=== PATIENT | male | born 1960 | race Caucasian/White ===

== ENCOUNTER 2019-09-01 14:29 | Emergency (ER) | payer OTHER ==
[2019-09-01] MEDS ORDERED: Aspirin 81 MG Tab.Chew PO ONE (14:51)
[2019-09-01] MEDS ORDERED: Sodium Chloride 0.9% 10 ML Syringe FLUSH PRN (14:51)
--- NOTE | 2019-09-01 15:25 | CR ---
Chest: Portable view of the chest was obtained. Comparison: No prior chest x-ray. Heart size and mediastinum are within normal limits for portable technique. Lungs are clear. Bony structures are grossly intact. Impression: 1. Nothing acute is appreciated on portable chest x-ray. Diagnostic code #1 This report was dictated in [place] Standard Time
[2019-09-01] MEDS ORDERED: Heparin Sodium 5,000 Units/ML Vial IVPUSH ONE (16:04)
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
[2019-09-01] MEDS ORDERED: Heparin Sodium/D5W 25,000 UNITS/500 ML BAG IV SCH (16:15)
== END 2019-09-01 17:48 ==
LOC: JD.ED 14:29
DX: I21.4 Non-ST elevation (NSTEMI) myocardial infarction (principal)
CPT/HCPCS: 36415; 71045; 80053; 84484; 85025; 93005; A9270; J1644; 93010; 96365; 96366; 99285; 99285-25

== ENCOUNTER 2020-07-15 17:09 | Emergency (ER) | payer OTHER ==
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
[2020-07-15] MEDS ORDERED: FLU VACC QS2020-21(6MOS UP)/PF 60 MCG/0.5 ML SYRINGE IM ONE (18:15)
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
== END 2020-07-15 19:30 | disposition home or self-care (01) ==
LOC: JD.ED 17:09
DX: S87.02XA Crushing injury of left knee, initial encounter (principal); Z91.040 Latex allergy status; Z79.82 Long term (current) use of aspirin; Z79.02 Long term (current) use of antithrombotics/antiplatelets; Z79.899 Other long term (current) drug therapy; Z23 Encounter for immunization; W23.0XXA Caught, crushed, jammed, or pinched between moving objects, initial encounter
CPT/HCPCS: 36415; 73552-26-LT; 73552-LT; 73562-26-LT; 73562-LT; 80053; 85025; 90686; 99283; G0008

== ENCOUNTER 2020-07-18 13:31 | Emergency (ER) | payer OTHER ==
--- NOTE | 2020-07-18 14:32 | EDM.PDOC ---
ED HPI GENERAL MEDICAL PROBLEM - General Chief Complaint: Chest Pain Stated Complaint: [facility] Time Seen by Provider: 07/18/20 13:53 Source of Information: Reports: Patient History Limitations: Reports: No Limitations - History of Present Illness INITIAL COMMENTS - FREE TEXT/NARRATIVE: Mr. Clark is a very pleasant 59-year-old gentleman with a past medical history significant for coronary artery disease, status post 3 MIs, the first in November 2016, the second on 07/09/2018, and the third 09/01/2019. He underwent a coronary angiogram each time, receiving a single coronary stent following his first and second MIs each, but not his third. The patient tells me that his Weed Science Research Technician believes that his third episode was due to coronary spasm related to the patient having discontinued his clopidogrel about 2 weeks prior. The patient now presents with similar symptoms. He states that he developed dyspnea, nausea, and diaphoresis around 11:00 this morning, while walking across his yard to a shed. He sat down for awhile, then decided to return to the house. He developed sudden onset crushing retrosternal chest pain while walking back to the house. He states that he was unable to lie down, because he thought that would cause him to vomit. He states that he took 2 sublingual nitroglycerin, with only slight improvement of his symptoms. He waited for a period of time before he had his nephews drive him to the [facility]. The [facility] ambulance service gave the patient a single spray of nitroglycerin, which did not improve his symptoms. He was then given 324 mg of aspirin and 5 mg of IV morphine, which resolved the patient's symptoms. They have not recurred. The patient states that today's symptoms are virtually identical to when he had his first TN in November 2016. He states that his symptoms in June 2018 and August 2019 were similar, but not as severe. The patient states that he injured his left knee this past 07/16/2020. He discontinued his clopidogrel at that time. He states that he was originally prescribed clopidogrel in 2016, following his initial TN. His most recent stent was for his second TN in June 2018. Here in the ED, the patient's is found to be hemodynamically stable, afebrile, saturating 97% on room air. Prior to this morning, the patient denies having a recent fever, chills, sore throat, ear pain, nasal or sinus congestion, cough, dyspnea, chest pain, palpitations, nausea, vomiting, constipation, diarrhea, abdominal pain, urinary symptoms, recent weight gain or weight loss, recent bloody bowel movements or black bowel movements, recent joint aches, headaches, or rashes. The patient's PCP is Dr. Anabelle Pelletier, at the [facility]. He does not recall the name of his Weed Science Research Technician at [facility]. - Related Data Allergies Allergy/AdvReac Type Severity Reaction Status Date / Time latex Allergy Itching Verified 07/18/20 13:40 Home Meds: Home Meds Aspirin 81 mg PO DAILY 09/01/19 [History] atorvaSTATin [Lipitor] 10 mg PO BEDTIME 09/01/19 [History] Clopidogrel Bisulfate [Plavix] 75 mg PO DAILY 07/15/20 [History] Hydrocodone/Acetaminophen [Hydrocodone-Acetamin 5-325 mg] 1 - 2 each PO Q6H PRN #30 tablet 07/15/20 [Rx] Past Medical History HEENT History: Reports: Glaucoma Cardiovascular History: Reports: CAD, High Cholesterol, Hypertension, TN (x 3; Nov 2016, 07/09/2018, 09/01/2019), Other (See Below) (Left renal artery stenosis; left kidney subsequently donated) Genitourinary History: Reports: Renal Calculus (x 1) - Past Surgical History HEENT Surgical History: Reports: Cataract Surgery (bilateral), Eye Surgery (Bilateral shunts. Right cornea transplant.), Tonsillectomy Cardiovascular Surgical History: Reports: Coronary Artery Stent (x 2; Nov 2016, 07/09/2018), Other (See Below) (Coronary angiogram x 3; Nov 2016, 07/09/2019, 09/01/2019) GI Surgical History: Reports: Other (See Below) (Exploratory laparotomy with hemicolectomy) Male Surgical History: Reports: Nephrectomy (donated left), Other (See Below) (Ureterolith extraction) Musculoskeletal Surgical History: Reports: ORIF (left tibia) Social & Family History - Family History Family Medical History: Noncontributory - Tobacco Use Tobacco Use Status *Q: Former Tobacco User Years of Tobacco use: 27 Packs/Tins Daily: 2 Month/Year Tobacco Last Used: Quit 2006 - Caffeine Use Caffeine Use: Reports: Coffee - Alcohol Use Alcohol Use History: No - Recreational Drug Use Recreational Drug Use: No - Living Situation & Occupation Living situation: Reports: Single, Alone Occupation: Unemployed ED ROS GENERAL - Review of Systems Review Of Systems: Comprehensive ROS is negative, except as noted in HPI. ED EXAM, GENERAL - Physical Exam Exam: See Below Exam Limited By: No Limitations General Appearance: Alert, WD/WN, No Apparent Distress (patient denies having any symptoms) Eye Exam: Bilateral Eye: EOMI, Normal Inspection Ears: Normal External Exam, Hearing Grossly Normal Nose: Normal Inspection Throat/Mouth: Normal Inspection, Normal Lips, Normal Voice, No Airway Compromise Head: Atraumatic, Normocephalic Neck: Normal Inspection, Full Range of Motion Respiratory/Chest: No Respiratory Distress, Lungs Clear, Normal Breath Sounds, No Accessory Muscle Use. No: Decreased Breath Sounds, Crackles, Rhonchi, Wheezing, Stridor, Prolonged Expiration Cardiovascular: Normal Peripheral Pulses, Regular Rate, Rhythm, No Edema, No Gallop, No JVD, No Murmur, No Rub Peripheral Pulses: 3+: Radial (L), Radial (R) GI/Abdominal: Normal Bowel Sounds, Soft, Non-Tender, No Organomegaly, No Distention, No Abnormal Bruit, No Mass, Other (Well-healed exploratory laparotomy scar) Back Exam: Normal Inspection, Full Range of Motion, NT Extremities: Normal Inspection, Normal Range of Motion, No Pedal Edema, Normal Capillary Refill Neurological: Alert, Oriented, Normal Cognition, No Motor/Sensory Deficits Psychiatric: Normal Affect Skin Exam: Warm, Dry, Intact, Normal Color, No Rash #1 Interpretation EKG Date: 07/18/20 Time: 13:40 Rhythm: NSR Rate (Beats/Min): 72 Jackson: Normal P-Wave: Present QRS: Normal ST-T: Other (Inferolateral T wave inversions, but no ischemic changes) QT: Normal Comparison: No Change (09/01/2019) #2 Interpretation EKG Date: 07/18/20 Time: 18:15 Rhythm: NSR Rate (Beats/Min): 84 Jackson: Normal P-Wave: Present QRS: Normal ST-T: Normal QT: Normal Comparison: Change From Previous EKG (Previously seen anterolateral T wave inversions resolved) Course - Vital Signs Last Recorded V/S: Last Vital Signs Temp 36.6 C 07/18/20 13:37 Pulse 70 07/18/20 13:37 Resp 16 07/18/20 13:37 BP 153/84 H 07/18/20 18:13 Pulse Ox 97 07/18/20 13:37 - Orders/Labs/Meds Orders: Active Orders 24 hr Category Date Time Status EKG Documentation Completion [RC] STAT Care 07/18/20 14:19 Active EKG Documentation Completion [RC] STAT Care 07/18/20 18:12 Active Chest 2V [CR] Stat Exams 07/18/20 14:19 Taken Heparin Sodium/D5W [Heparin 25,000 Units in D5W 500 ML] Med 07/18/20 16:00 Active 25,000 units in 500 ml IV TITRATE Nitroglycerin/D5W [Nitroglycerin 25 MG/D5W 250 ML] Med 07/18/20 18:30 Active 25 mg in 250 ml IV TITRATE Medication Orders Heparin Sodium/Dextrose (Heparin 25,000 Units In D5w 500 Ml) 25,000 units in 500 mls @ 19.6 mls/hr IV TITRATE YARITZA; Protocol Last Admin: 07/18/20 16:09 Dose: 980 units/hr, 19.6 mls/hr Documented by: [id number] Cosigned by: KERRY Nitroglycerin/Dextrose (Nitroglycerin 25 Mg/D5w 250 Ml) 25 mg in 250 mls @ 3 mls/hr IV TITRATE YARITZA; Protocol Last Titration: 07/18/20 20:40 Dose: 15 mcg/min, 9 mls/hr Documented by: [email or web address] Titration: 07/18/20 20:25 Dose: 10 mcg/min, 6 mls/hr Documented by: [email or web address] Titration: 07/18/20 20:00 Dose: 7 mcg/min, 4.2 mls/hr Documented by: [email or web address] Admin: 07/18/20 18:30 Dose: 5 mcg/min, 3 mls/hr Documented by: [email or web address] Labs: Laboratory Tests 07/18/20 07/18/20 07/18/20 Range/Units 14:42 14:42 14:42 WBC 8.49 (4.23-9.07) K/mm3 RBC 5.08 (4.63-6.08) M/mm3 Hgb 14.2 (13.7-17.5) gm/dl Hct 44.0 (40.1-51.0) % MCV 86.6 (79.0-92.2) fl MCH 28.0 (25.7-32.2) pg MCHC 32.3 (32.2-35.5) g/dl RDW Std Deviation 43.3 (35.1-43.9) fL Plt Count 278 (163-337) K/mm3 MPV 9.3 L (9.4-12.3) fl Neutrophils % (Manual) 85 H (40-60) % Band Neutrophils % 0 (0-10) % Lymphocytes % (Manual) 9 L (20-40) % Atypical Lymphs % 0 % Monocytes % (Manual) 6 (2-10) % Eosinophils % (Manual) 0 L (0.8-7.0) % Basophils % (Manual) 0 L (0.2-1.2) Platelet Estimate Adequate RBC Morph Comment Normal APTT (21.7-31.4) SECONDS D-Dimer, Quantitative 0.65 H (0.19-0.50) mg/L Sodium 138 (136-145) mEq/L Potassium 4.0 (3.5-5.1) mEq/L Chloride 103 (98-107) mEq/L Carbon Dioxide 26 (21-32) mEq/L Anion Gap 13.0 (5-15) BUN 10 (7-18) mg/dL Creatinine 1.3 (0.7-1.3) mg/dL Est Cr Clr Drug Dosing 61.61 mL/min Estimated GFR (MDRD) 56 (>60) mL/min BUN/Creatinine Ratio 7.7 L (14-18) Glucose 93 (80-115) mg/dL Calcium 9.1 (8.5-10.1) mg/dL Magnesium 2.0 (1.8-2.4) mg/dl Total Bilirubin 0.6 (0.2-1.0) mg/dL AST 24 (15-37) U/L ALT 22 (16-63) U/L Alkaline Phosphatase 79 (46-116) U/L Troponin I 0.209 H* (0.00-0.056) ng/mL NT-Pro-B Natriuret Pep (0-125) pg/mL Total Protein 7.3 (6.4-8.2) g/dl Albumin 3.8 (3.4-5.0) g/dl Globulin 3.5 gm/dL Albumin/Globulin Ratio 1.1 (1-2) SARS-CoV-2 RNA (RADHA) (NEGATIVE) 07/18/20 07/18/20 07/18/20 Range/Units 14:42 14:42 16:05 WBC (4.23-9.07) K/mm3 RBC (4.63-6.08) M/mm3 Hgb (13.7-17.5) gm/dl Hct (40.1-51.0) % MCV (79.0-92.2) fl MCH (25.7-32.2) pg MCHC (32.2-35.5) g/dl RDW Std Deviation (35.1-43.9) fL Plt Count (163-337) K/mm3 MPV (9.4-12.3) fl Neutrophils % (Manual) (40-60) % Band Neutrophils % (0-10) % Lymphocytes % (Manual) (20-40) % Atypical Lymphs % % Monocytes % (Manual) (2-10) % Eosinophils % (Manual) (0.8-7.0) % Basophils % (Manual) (0.2-1.2) Platelet Estimate RBC Morph Comment APTT 26.2 (21.7-31.4) SECONDS D-Dimer, Quantitative (0.19-0.50) mg/L Sodium (136-145) mEq/L Potassium (3.5-5.1) mEq/L Chloride (98-107) mEq/L Carbon Dioxide (21-32) mEq/L Anion Gap (5-15) BUN (7-18) mg/dL Creatinine (0.7-1.3) mg/dL Est Cr Clr Drug Dosing mL/min Estimated GFR (MDRD) (>60) mL/min BUN/Creatinine Ratio (14-18) Glucose (80-115) mg/dL Calcium (8.5-10.1) mg/dL Magnesium (1.8-2.4) mg/dl Total Bilirubin (0.2-1.0) mg/dL AST (15-37) U/L ALT (16-63) U/L Alkaline Phosphatase (46-116) U/L Troponin I (0.00-0.056) ng/mL NT-Pro-B Natriuret Pep 152 H (0-125) pg/mL Total Protein (6.4-8.2) g/dl Albumin (3.4-5.0) g/dl Globulin gm/dL Albumin/Globulin Ratio (1-2) SARS-CoV-2 RNA (RADHA) Negative (NEGATIVE) Meds: Medications Generic Name Dose Route Start Last Admin Trade Name Freq PRN Reason Stop Dose Admin Heparin Sodium/Dextrose 25,000 units in 500 mls @ 19.6 mls/hr 07/18/20 16:00 07/18/20 16:09 Heparin 25,000 Units In D5w 500 Ml IV 980 units/hr TITRATE YARITZA 19.6 mls/hr Administration Protocol 980 UNITS/HR Nitroglycerin/Dextrose 25 mg in 250 mls @ 3 mls/hr 07/18/20 18:30 07/18/20 20:40 Nitroglycerin 25 Mg/D5w 250 Ml IV 15 mcg/min TITRATE YARITZA 9 mls/hr Titration Protocol 5 MCG/MIN Discontinued Medications Generic Name Dose Route Start Last Admin Trade Name Nixon PRN Reason Stop Dose Admin Heparin Sodium (Porcine) 4,000 units 07/18/20 15:53 07/18/20 16:09 Heparin Sodium IVPUSH 07/18/20 15:54 4,000 units .BOLUS STA Administration Hydromorphone HCl 1 mg 07/18/20 20:23 07/18/20 20:54 Dilaudid IVPUSH 07/18/20 20:24 1 mg ONETIME ONE Administration Nitroglycerin 0.4 mg 07/18/20 18:12 07/18/20 18:13 Nitrostat SL 07/18/20 18:13 0.4 mg ONETIME ONE Administration Nitroglycerin Confirm 07/18/20 18:12 07/18/20 18:23 Nitrostat Administered 07/18/20 18:13 Not Given Dose 0.4 mg .ROUTE .STK-MED ONE - Re-Assessments/Exams Free Text/Narrative Re-Assessment/Exam: 07/18/20 14:20 As above, the patient developed sudden diaphoresis, nausea, and dyspnea while walking across his yard around 11:00 this morning, followed by sudden onset onset crushing chest pain. He took 2 sublingual nitroglycerin with only slight improvement of his symptoms. He was driven to the paramedics, who then gave him a nitroglycerin spray, with no improvement of his symptoms, followed by aspirin abd morphine, with subsequent complete resolution of his symptoms. He remains asymptomatic. His ECG, obtained at triage, shows T wave inversions in the inferolateral leads, but no acute ischemic changes. His physical exam is grossly unremarkable. He states that his symptoms today were virtually identical to his first TN in November 2016, and not to do similar from subsequent MIs in June 2018 in August 2019. I have no doubt that his symptoms today are cardiac in etiology, as well. I have ordered a work-up that includes blood work and a chest x-ray. Because he will likely require transfer to a cardiac center, he will also be swabbed for the SARS-CoV-2 virus 07/18/20 15:01 2-view chest radiograph is read by Kobi as "No acute findings." 07/18/20 15:44 The patient's CBC is unremarkable. His CMP is unremarkable. His magnesium level is within normal limits at 2.0. His BNP is mildly elevatred at 152. His troponin is elevated at 0.209. His D-dimer is mildly elevated at 0.65. Results of his swab for the SARS-CoV-2 virus are still pending. 07/18/20 16:02 Case discussed with Jordana at [facility] at 15:40. Case then discussed with Dr. Ramos, Weed Science Research Technician at [facility], at 15:48. He agreed that the patient should be admitted to the Hospitalist. He would like us to start a heparin drip. The patient has already been swabbed for the SARS-CoV-2 virus, with the results still pending. I will call the Hospitalist back once I have the result. 07/18/20 16:13 I pushed the chest x-ray images to [facility]. 07/18/20 17:30 The patient's swab for the SARS-CoV-2 virus returned negative. 07/18/20 18:12 Notified that the patient redeveloped crushing retrosternal chest pain, the same kind of pain as he had earlier. I have ordered a repeat ECG + a SL NTG. 07/18/20 18:22 Notified that the patient's chest pain solved after a single sublingual nitroglycerin. An ECG obtained, unfortunately, after the nitroglycerin was given shows a normal sinus rhythm at 84 bpm with no ischemic changes, indeed, the previously seen T wave inversions in the inferolateral leads are now upr ight. Based on the above, I have ordered a nitroglycerin drip to be started at 5 mcg/min. 07/18/20 20:23 The patient has continued to have chest pain. His nitroglycerin drip was increased to 10 mcg/min, and I have just ordered it to be increased to 15 mcg/min. I will also order some IV Dilaudid. Additionally, the patient has become quite upset that he has not yet been transported. He states that his brother could have come up and driven him to [place] by now, which may be true, but I explained to the patient that because he has had an TN, he needs to be on a radiation monitor in case he goes into a fatal dysrhythmia, and, in addition, he is receiving nitroglycerin and heparin drips, which cannot be done in his brother's car. I explained that our ED, and other EDs and hospitals across the [facility] are very busy, and that transportation is desired by everyone, creating a delay in transfer for not only him, but for every other patient that we are trying to transfer, as well. Called back by Miky at [facility] at 20:13. Case then discussed with Dr. Zarco, Hospitalist senior instrumentation engineer at 20:15. She accepted the patient for admission to their hospital. The patient will be transported by helicopter. Departure - Departure Time of Disposition: 20:30 Disposition: DC/Tfer to Acute Hospital 02 Reason for Transfer *Q: Primary PCI Indicated Condition: Good Clinical Impression: Non-STEMI (non-ST elevated myocardial infarction) Referrals: Anabelle Pelletier MD [Primary Care Provider] - Forms: ED Department Discharge Sepsis Event Note (ED) - Evaluation Sepsis Screening Result: No Definite Risk - Focused Exam Vital Signs: Vital Signs Temp Pulse Resp BP BP Pulse Ox 07/18/20 18:13 153/84 H 07/18/20 13:37 36.6 C 70 16 126/60 97 - My Orders Last 24 Hours: My Active Orders 07/18/20 14:19 EKG Documentation Completion [RC] STAT Chest 2V [CR] Stat 07/18/20 16:00 Heparin Sodium/D5W [Heparin 25,000 Units in D5W 500 ML] 25,000 units in 500 ml IV TITRATE 07/18/20 18:12 EKG Documentation Completion [RC] STAT 07/18/20 18:30 Nitroglycerin/D5W [Nitroglycerin 25 MG/D5W 250 ML] 25 mg in 250 ml IV TITRATE - Assessment/Plan Last 24 Hours: My Active Orders 07/18/20 14:19 EKG Documentation Completion [RC] STAT Chest 2V [CR] Stat 07/18/20 16:00 Heparin Sodium/D5W [Heparin 25,000 Units in D5W 500 ML] 25,000 units in 500 ml I V TITRATE 07/18/20 18:12 EKG Documentation Completion [RC] STAT 07/18/20 18:30 Nitroglycerin/D5W [Nitroglycerin 25 MG/D5W 250 ML] 25 mg in 250 ml IV TITRATE
[2020-07-18] MEDS ORDERED: Heparin Sodium 5,000 Units/ML Vial IVPUSH STA (15:53)
[2020-07-18] MEDS ORDERED: Heparin Sodium/D5W 25,000 UNITS/500 ML BAG IV SCH (16:00)
[2020-07-18] MEDS ORDERED: Nitroglycerin 0.4 MG Tab.SL ONE (18:12)
[2020-07-18] MEDS ORDERED: Nitroglycerin 0.4 MG Tab.SL SL ONE (18:12)
[2020-07-18] MEDS ORDERED: Nitroglycerin/D5W 25 MG/250 ML BOTTLE IV SCH (18:30)
[2020-07-18] MEDS ORDERED: HYDROmorphone 1 MG/ML Syringe IVPUSH ONE (20:23)
--- NOTE | 2020-07-19 09:44 | CR ---
PROCEDURE INFORMATION: Exam: XR Chest, 2 Views Exam date and time: 07/18/2020 2:32 PM Age: 59 years old Clinical indication: Chest pain; Patient HX: HX of heart attack TECHNIQUE: Imaging protocol: XR of the chest Views: 2 views. COMPARISON: CR Chest 1V Frontal 09/01/2019 2:45 PM FINDINGS: Lungs: Unremarkable. No consolidation. Pleural space: Unremarkable. No pleural effusion. No pneumothorax. Heart/Mediastinum: Unremarkable. No cardiomegaly. Bones/joints: Unremarkable. IMPRESSION: No acute findings. Thank you for allowing us to participate in the care of your patient. Dictated and Authenticated by: Gigi Mata MD 07/18/2020 3:52 PM Central Time ([place] & [place]) KATIA
== END 2020-07-18 21:50 ==
LOC: JD.ED 13:31
DX: I21.4 Non-ST elevation (NSTEMI) myocardial infarction (principal); I25.10 Atherosclerotic heart disease of native coronary artery without angina pectoris; E78.00 Pure hypercholesterolemia, unspecified; I10 Essential (primary) hypertension; I25.2 Old myocardial infarction; Z95.5 Presence of coronary angioplasty implant and graft; Z87.891 Personal history of nicotine dependence; Z20.828 Contact with and (suspected) exposure to other viral communicable diseases; Z91.040 Latex allergy status; Z79.82 Long term (current) use of aspirin; Z79.02 Long term (current) use of antithrombotics/antiplatelets; Z79.899 Other long term (current) drug therapy
CPT/HCPCS: 36415; 71046; 80053; 83735; 83880; 84484; 85007; 85027; 85379; 85730; 87635; 93005; 96365; 96366; 96367; 96375; 99285; J1170; J1644; J3490; 93010; U0002

== ENCOUNTER 2022-06-13 16:32 | Emergency (ER) | payer OTHER ==
[2022-06-13 17:56] LABS: ESTIMATED GFR 62 mL/min (>60)
== END 2022-06-13 19:50 | disposition home or self-care (01) ==
LOC: JD.ED 16:32
DX: U07.1 COVID-19 (principal); I25.2 Old myocardial infarction
CPT/HCPCS: 36415; 71045; 80053; 83880; 84484; 85025; 85379; 85610; 85730; 93005; 99284; M0222; 99282